=== PATIENT | male | born 1990 | race African-American/Black ===

== ENCOUNTER 2016-06-01 00:42 | Emergency (ER) | payer SELFPAY ==
[~2016-06-01] VITALS: Ht 182.9 cm; Wt 52.0 kg
[2016-06-01 00:49] VITALS: BP 97/48; TEMP 96.7
[2016-06-01] MEDS ORDERED: NORCO 325 MG-7.1 TAB PO ×2 (02:03→02:27)
[2016-06-01 02:13] VITALS: PULSE 53
== END 2016-06-01 02:32 | disposition home or self-care (01) ==
LOC: COL.ER 00:42 → EDBD 00:57 → COL.ER 02:32
DX: S62.231A Other displaced fracture of base of first metacarpal bone, right hand, initial encounter for closed fracture (principal); S60.311A Abrasion of right thumb, initial encounter; S60.511A Abrasion of right hand, initial encounter; V17.0XXA Pedal cycle driver injured in collision with fixed or stationary object in nontraffic accident, initial encounter; Y93.55 Activity, bike riding; Y92.414 Local residential or business street as the place of occurrence of the external cause